=== PATIENT | male | born 1985 | race Caucasian/White ===

== ENCOUNTER 2020-02-21 11:57 | Emergency (ER) | payer BC ==
[~2020-02-21] VITALS: Ht 190.5 cm; Wt 122.5 kg
[2020-02-21 12:01] VITALS: BP_SYST 156
--- NOTE | 2020-02-21 12:10 | NUR ---
Placed in room 4 . Placed on supervisor epoxy fabrication, blood pressure machine and pulse oximeter. To gown for exam. Side rails up. Report given to Radha WOMACK.
--- NOTE | 2020-02-21 12:12 | NUR ---
Patient arrived in the ED c/o left-sided chest pain with palpitations that started this morning. Denied any shortness of breath. Denied any fevers, chills, nausea or vomiting. Patient is alert and oriented x4, respirations even and unlabored, speaking in full sentences, and ambulating with a steady gait. VSS, pain level 4/10. Informed of the approximate wait time. Instructed to notify ED staff for any changes in condition or worsening of symptoms while waiting to be seen by an ED provider. Patient verbalized understanding.
--- NOTE | 2020-02-21 12:14 | NUR ---
ER Dr. Galvez at bedside examining patient.
[2020-02-21] MEDS ORDERED: ASPIRIN 81 MG TAB.CHEW PO ONE (12:30)
[2020-02-21] MEDS ORDERED: NITROGLYCERIN 1 INCH (GM) OINT. TP ONE (12:30)
--- NOTE | 2020-02-21 12:35 | NUR ---
# 18 gauge angiocath placed to right hand using asceptic technique per facility protocol. Opsite placed over site. Flushed with 10 mL of sterile normal saline. No evidence of infiltration noted. Patient tolerated well.
[2020-02-21 12:48] LABS: BASOPHILS % (AUTO) 0.5 % (0.0-2.0); EOSINOPHILS % (AUTO) 0.5 % (0.0-4.0); HEMATOCRIT 43.6 % (36-54); HEMOGLOBIN 14.9 g/dL (14.0-18.0); LYMPHOCYTES % (AUTO) 20.6 % (20.5-51.5); MEAN CORPUSCULAR HEMOGLOBIN 32 pg (27-31); MEAN CORPUSCULAR HGB CONC 34 % (32-36); MEAN CORPUSCULAR VOLUME 94 fL (79.0-98.0); MONOCYTES # (AUTO) 0.4 K/uL (0.0-1.0); NEUTROPHILS # (AUTO) 3.3 K/uL (1.8-7.7); NEUTROPHILS % (AUTO) 70.4 % (40.0-70.0); PLATELET COUNT (AUTO) 172 K/uL (130-430); RED BLOOD CELL COUNT(AUTO) 4.64 MIL/uL (4.2-6.2); RED CELL DISTRIBUTION WIDTH 12.5 % (9.0-15.0); WHITE BLOOD COUNT (AUTO) 4.6 K/uL (4.8-10.8)
[2020-02-21 13:00] LABS: CALCIUM 8.8 mg/dL (8.4-11.0); CREATININE 1.12 mg/dL (0.55-1.30); POTASSIUM 3.6 mmol/L (3.5-5.1)
[2020-02-21 13:02] LABS: PROTHROMBIN TIME 10.6 SECS (9.5-12.5)
[2020-02-21 13:06] LABS: TOTAL BILIRUBIN 0.3 mg/dL (0.0-1.0)
[2020-02-21 13:36] VITALS: BP_SYST 123
--- NOTE | 2020-02-21 13:37 | NUR ---
Patient given written and verbal discharge instructions and verbalizes understanding. ER MD discussed with patient the results and treatment provided. Patient in stable condition. ID arm band removed. IV catheter removed intact and dressing applied, no active bleeding. Rx of Xanax given. Patient educated on pain management and to follow up with PMD. Pain Scale 0/10. Opportunity for questions provided and answered. Medication side effect fact sheet provided.
== END 2020-02-21 13:37 | disposition home or self-care (01) ==
LOC: SED 11:57
DX: F41.9 Anxiety disorder, unspecified (principal); Z85.72 Personal history of non-Hodgkin lymphomas
CPT/HCPCS: 36415; 71045; 80053; 83880; 84484; 85025; 85610-TC; 93005; 99285